=== PATIENT | female | born 1965 | race Caucasian/White ===

== ENCOUNTER 2019-03-01 10:17 | Inpatient (IN) ==
[2019-03-01 10:51] LABS: URINE SOURCE CLEAN CATCH
[2019-03-01 11:00] LABS: BILIRUBIN URINE NEGATIVE (NEGATIVE); BLOOD URINE NEGATIVE (NEGATIVE); COLOR YELLOW; GLUCOSE URINE NEGATIVE (NEGATIVE); KETONE URINE 10 mg/dL (NEGATIVE); LEUKOCYTES URINE MODERATE (NEGATIVE); NITRITE URINE NEGATIVE (NEGATIVE); PROTEIN URINE 30 mg/dL (NEGATIVE); SP GRAVITY URINE 1.028; TURBIDITY URINE HAZY (CLEAR); UROBILINOGEN URINE NORMAL (NORMAL)
[2019-03-01 11:17] LABS: UR EPITHELIAL CELLS >10 /HPF (<10); URINE BACTERIA NEGATIVE /HPF; URINE RBC <10 /HPF (<10)
[2019-03-01 11:17] LABS: BASO# 0.04 X1000 (0.0-0.2); BASO% 0.2 % (0.0-0.8); HEMATOCRIT 49.2 % (37.0-47.0); HEMOGLOBIN 16.8 g/dL (12.0-16.0); IMM GRAN# 0.03 X1000 (0.0-0.04); IMM GRAN% 0.2 % (0.0-0.5); LYMPH# 1.18 X1000 (1.2-3.4); LYMPH% 7.2 % (20.5-51.1); MCH 30.1 PG (27-31); MCHC 34.1 g/dL (33-37); MONO# 0.83 X1000 (0.11-0.59); MPV 10.6 FL (7.4-10.4); NEUT# 14.42 X1000 (1.4-6.5); NEUT% 87.4 % (42.2-75.2); PLT 366 X1000 (130-400); RBC 5.59 XMIL (4.2-5.4); RDW 12.3 % (11.5-14.5)
[2019-03-01 11:22] LABS: URINE CASTS NONE SEEN; URINE CRYSTALS NONE SEEN; URINE SMALL ROUND CELLS NONE SEEN; URINE YEAST NONE SEEN
[2019-03-01] MEDS ORDERED: NS 1,000 ML IV ONE (11:40)
[2019-03-01] MEDS ORDERED: ZOFRAN IV ONE (11:40)
[2019-03-01] MEDS ORDERED: PROTONIX IV ONE (11:40)
[2019-03-01] MEDS ORDERED: SODIUM CHLORIDE 0.9% INJ ONE (11:40)
[2019-03-01 11:42] LABS: AGAP 18; ALB/GLOB RATIO 1.5; ALBUMIN 4.6 g/dL (3.5-5.0); ALKALINE PHOSPHATASE 111 U/L (32-104); AMYLASE 67 U/L (20-200); BUN 12 mg/dL (8-22); CALCIUM 10.5 mg/dL (8.8-10.2); CHLORIDE 103 mmol/L (98-107); COSMO 284; CREATININE 0.9 mg/dL (0.5-0.9); ESTIMATED GFR > 60; GLUCOSE 184 mg/dL (70-104); GOT 27 U/L (10-30); GPT 34 U/L (10-36); LIPASE 18 U/L (13-60); POTASSIUM 4.7 mmol/L (3.5-5.1); SODIUM 140 mmol/L (136-145); TCO2 19 mmol/L (25-35); TOTAL BILIRUBIN 0.47 mg/dL (0.20-1.00); TOTAL PROTEIN 7.6 g/dL (6.3-8.3)
--- NOTE | 2019-03-01 12:42 | Diag Imaging Result Doc PS360 ---
EXAM: CT ABD/PELVIS W/IV CONT ONLY HISTORY: epigastric pain, leukocytosis TECHNIQUE: CT abdomen and pelvis with intravenous contrast, but without oral contrast. COMPARISON: 05/04/2018 FINDINGS: The gallbladder has been removed. Normal liver, spleen, pancreas, adrenal glands, and kidneys. No hydronephrosis. Normal aorta. Normal appendix. No abscess. No bowel obstruction. There appears to be mild thickening to the wall of the ascending colon. The uterus is small. Urinary bladder is moderately distended and normal. No pelvic mass. IMPRESSION: 1.Possible ascending colitis 2.Cholecystectomy This exam was performed using automated exposure control, adjustment of mA or kV according to patient size, and/or use of iterative reconstruction technique. Electronically signed by hCris Guzman 03/01/2019 12:40 PM
[2019-03-01] MEDS ORDERED: FLAGYL 500 MG/NS 500 MG/100 ML IVPB IV ONE (14:07)
[2019-03-01] MEDS ORDERED: ROCEPHIN 1 GM in NS 50 ML IV ONE (14:07)
[2019-03-01] MEDS ORDERED: ZOFRAN PO PRN (15:21)
[2019-03-01] MEDS: FLAGYL 500 MG/NS 500 MG/100 ML IVPB IV SCH ×2 (17:04→22:32)
[2019-03-01] MEDS ORDERED: NICODERM PATCH TD ONE (18:39)
[2019-03-01] MEDS ORDERED: TYLENOL PO PRN (18:41)
--- NOTE | 2019-03-01 20:49 | HISTORY AND PHYSICAL ---
CHIEF COMPLAINT: Abdominal pain. Ms Mobley 54-year-old white female patient complaining of pain in the epigastrium started last night. The pain was moderate in intensity. The patient also had nausea, vomiting feeling. Pain was moderate in intensity. The patient was in rehab at some hospital for her medication abuse behavior. The patient claimed she was at [facility], from there she drove to [facility] as her PMD Dr. Wade is here and railway shunter Dr. Garg is here. In the ER patient had CT scan of the abdomen and pelvis done, which revealed possible ascending colitis. CBC revealed leukocytosis and the patient was admitted for further care. Her oral intake was poor. The patient did have nausea. She was complaining of chills and feverish feeling. The patient claims she was restless due to her pain. Patient denied any dysuria or hematuria. Complaining of urinary frequency. The patient did have few loose bowel movements. She was not sure about blood or mucus in the stool. No abdominal distention. Complaining of mild cough with scanty sputum production. No typical chest pain. No major weight gain or weight loss. At times palpitation. Patient was nervous. No further history available at this time. ALLERGIES: Codeine. CURRENT MEDICATIONS: Include Prilosec. PAST MEDICAL HISTORY: Gastritis and reflux disease. Patient had a cholecystectomy many months ago. She had surgery on her left forearm. History suggestive of gastritis and reflux disease, chronic pain, history of pain medication abuse, she does have history suggestive of mucus in the stool, history of hepatitis C, colon polyp, sinus surgery and left wrist surgery. PERSONAL HISTORY: Patient lives with her spouse, does smoke, denied alcohol. Patient was taking pain medication for which she went for rehab. FAMILY HISTORY: Significant for hypertension and heart disease on her father's side. Mother is healthy. PHYSICAL EXAMINATION: GENERAL: Middle-aged white female patient in mild distress. VITAL SIGNS: On admission blood pressure 163/68, pulse 53, respiratory rate 16, temperature 98 degrees. SKIN: Normal turgor. No rash or petechiae. Head atraumatic, normocephalic. [place] conjunctivae. Anicteric sclerae. Extraocular muscle movement normal. Fundus cannot be penetrated. Good oral hygiene. No tonsillopharyngeal congestion or exudate. Ears and nose benign. NECK: Supple. No JVD, thyromegaly or lymphadenopathy. CHEST: Bilateral good air entry present. No rales or rhonchi. Occasional wheezing. CARDIOVASCULAR: S1 and S2 heard. No gallop or thrill. ABDOMEN: Soft. No distention. Bowel sounds present. Tenderness in the epigastrium, mild tenderness right upper quadrant. No guarding or rigidity. EXTREMITIES: No cyanosis, clubbing. No acute DVT. Peripheral pulsation intact. MECHANICAL OXIDIZER: Alert, awake, able to move all 4 limbs. LAB DATA: Revealed WBC count 16.5, hemoglobin 16.8, hematocrit 49.2, platelet count 366,000. Electrolytes fairly benign. Blood sugar 184. Urinalysis, patient does have moderate leukocyte, 10 to [address] scan of the abdomen and pelvis done which did reveal ascending colitis. CONSIDERATION: Patient admitted with abdominal pain. Consideration ascending colitis, gastritis. Urinalysis did reveal urinary tract infection. History of pain medication use, leukocytosis. PLAN: Admit patient. IV antibiotics. Close observation. IV Protonix. Patient does have history of hepatitis C. Overall plan discussed at length with the patient. Encouraged smoking cessation. cc: Lake Jimenez MD
[2019-03-01] MEDS: LEVAQUIN 500 MG/D5W 500 MG/100 ML IVPB IV SCH (22:31)
[2019-03-01] MEDS ORDERED: PROTONIX IV SCH (23:00)
[2019-03-02] MEDS: NS + KCL 20 MEQ 1,000 ML IV SCH ×2 (00:07→15:08)
[2019-03-02] MEDS ORDERED: ROCEPHIN 1 GM in NS 50 ML IV SCH (03:00)
[2019-03-02] MEDS: FLAGYL 500 MG/NS 500 MG/100 ML IVPB IV SCH ×4 (04:15→20:50)
[2019-03-02 06:24] LABS: BASO# 0.02 X1000 (0.0-0.2); BASO% 0.2 % (0.0-0.8); EOS# 0.03 X1000 (0.0-0.7); EOS% 0.2 % (0.0-10.0); HEMATOCRIT 42.4 % (37.0-47.0); HEMOGLOBIN 13.9 g/dL (12.0-16.0); IMM GRAN# 0.02 X1000 (0.0-0.04); IMM GRAN% 0.2 % (0.0-0.5); LYMPH# 3.24 X1000 (1.2-3.4); LYMPH% 25.7 % (20.5-51.1); MCHC 32.8 g/dL (33-37); MCV 91.4 FL (81-99); MONO# 0.96 X1000 (0.11-0.59); MONO% 7.6 % (1.7-9.3); MPV 10.5 FL (7.4-10.4); NEUT# 8.34 X1000 (1.4-6.5); NEUT% 66.1 % (42.2-75.2); PLT 261 X1000 (130-400); RBC 4.64 XMIL (4.2-5.4); RDW 12.4 % (11.5-14.5); WBC 12.61 X1000 (4.8-10.8)
[2019-03-02 07:07] LABS: AGAP 13; ALB/GLOB RATIO 1.5; ALBUMIN 3.4 g/dL (3.5-5.0); ALKALINE PHOSPHATASE 77 U/L (32-104); BUN 8 mg/dL (8-22); CALCIUM 8.6 mg/dL (8.8-10.2); CHLORIDE 107 mmol/L (98-107); COSMO 279; CREATININE 0.7 mg/dL (0.5-0.9); ESTIMATED GFR > 60; GLUCOSE 92 mg/dL (70-104); GOT 21 U/L (10-30); GPT 21 U/L (10-36); POTASSIUM 4.1 mmol/L (3.5-5.1); SODIUM 141 mmol/L (136-145); TCO2 21 mmol/L (25-35); TOTAL BILIRUBIN 0.45 mg/dL (0.20-1.00); TOTAL PROTEIN 5.7 g/dL (6.3-8.3)
[2019-03-02] MEDS: PROTONIX IV SCH (12:56)
[2019-03-02] MEDS: SODIUM CHLORIDE 0.9% INJ PRN (12:56)
[2019-03-02] MEDS ORDERED: NICODERM PATCH TD PRN (17:01)
--- NOTE | 2019-03-02 17:25 | PROGRESS NOTE ---
DATE: 03/02/2019 SUBJECTIVE: I am seeing Ms. Mobley in Dr. Wade' absence. The patient says she has had some epigastric pain that seems to be slightly improved today. Yesterday she had vomiting and diarrhea that have now resolved. She was in [facility], and she wants to have the old records summoned for her evaluation on that. She wants to see Dr. Garg, as he has followed her senior living for some off and on vomiting, diarrhea, and epigastric pain. She says she has had her gallbladder removed by Dr. Herrera back in September, and in August the patient had apparently had endoscopies, upper and lower, per Dr. Garg. She has continued to have off and on episodes of vomiting and diarrhea, and she wants improvement senior living from that. She has been found on a CT scan of the abdomen and pelvis to have some thickening of the wall of the ascending colon, otherwise negative. OBJECTIVE: Vital Signs: Afebrile, pulse 56, respirations 16, blood pressure 129/80, and O2 saturation on room air 98%. Cardiovascular: RRR. No murmur. Lungs: CTA. Abdomen: Soft. Mild epigastric tenderness. No mass or organomegaly. No rebound or guarding. Extremities: No calf tenderness, cords, or edema. Neurologic: Cranial nerves 2 through 12 are intact. No focal deficits. LABORATORY DATA: White count has diminished from 16.5 to 12.6, hemoglobin 13.9, platelets 261,000. CMP unremarkable. Amylase and lipase normal yesterday. Urinalysis showed moderate leukocytes, 10 to 20 WBCs per clean-catch specimen yesterday, but so far the urine culture is negative. ASSESSMENT: 1. Abdominal pain, recurrent, with possible ascending colitis. 2. Pyuria with negative urine culture so far. 3. Leukocytosis. 4. History of pain medication use. 5. Hepatitis C. 6. Remote history of intravenous drug abuse. 7. History of hypertension. 8. History of post traumatic stress disorder. PLAN: We will ask Dr. Garg to see the patient at her request. Continue IV antibiotics of Levaquin and Flagyl. Continue IV fluids. Continue IV Protonix. Zofran as needed for nausea or vomiting. Nicotine patch will be continued as needed. Repeat laboratories in the morning to include sedimentation rate, CBC, BMP. cc: MD Lake Madrigal MD
[2019-03-02] MEDS: LEVAQUIN 500 MG/D5W 500 MG/100 ML IVPB IV SCH (22:48)
[2019-03-03] MEDS: ZOFRAN IV PRN ×4 (03:56→18:08)
[2019-03-03] MEDS: FLAGYL 500 MG/NS 500 MG/100 ML IVPB IV SCH ×5 (03:56→20:58)
[2019-03-03] MEDS ORDERED: G.I. COCKTAIL PO ONE (04:34)
[2019-03-03 06:37] LABS: BASO# 0.05 X1000 (0.0-0.2); BASO% 0.4 % (0.0-0.8); EOS# 0.03 X1000 (0.0-0.7); EOS% 0.3 % (0.0-10.0); HEMATOCRIT 44.4 % (37.0-47.0); HEMOGLOBIN 15.1 g/dL (12.0-16.0); IMM GRAN# 0.03 X1000 (0.0-0.04); IMM GRAN% 0.3 % (0.0-0.5); LYMPH# 2.32 X1000 (1.2-3.4); LYMPH% 19.7 % (20.5-51.1); MCH 30.3 PG (27-31); MCV 89.2 FL (81-99); MONO# 0.95 X1000 (0.11-0.59); MONO% 8.1 % (1.7-9.3); MPV 10.9 FL (7.4-10.4); NEUT% 71.2 % (42.2-75.2); PLT 294 X1000 (130-400); RBC 4.98 XMIL (4.2-5.4); RDW 12.2 % (11.5-14.5); WBC 11.78 X1000 (4.8-10.8)
[2019-03-03 07:16] LABS: AGAP 14; BUN 6 mg/dL (8-22); CALCIUM 9.2 mg/dL (8.8-10.2); CHLORIDE 103 mmol/L (98-107); COSMO 270; CREATININE 0.7 mg/dL (0.5-0.9); ESTIMATED GFR > 60; GLUCOSE 143 mg/dL (70-104); POTASSIUM 3.8 mmol/L (3.5-5.1); SODIUM 135 mmol/L (136-145); TCO2 18 mmol/L (25-35)
[2019-03-03] MEDS: SODIUM CHLORIDE 0.9% INJ PRN (07:58)
[2019-03-03] MEDS: PROTONIX IV SCH ×2 (07:58→11:04)
[2019-03-03 08:05] LABS: SED RATE 1 mm/hr (0-20)
[2019-03-03] MEDS: CARAFATE LIQUID PO SCH ×3 (10:04→20:58)
[2019-03-03] MEDS: SUPREP BOWEL PREP KIT PO SCH ×2 (11:57→21:01)
[2019-03-03] MEDS ORDERED: REGLAN IV PRN (13:12)
[2019-03-03] MEDS ORDERED: ROBAXIN PO PRN (13:39)
[2019-03-03] MEDS: LIBRAX PO SCH ×2 (14:15→17:39)
[2019-03-03] MEDS: G.I. COCKTAIL PO SCH ×2 (14:32→17:39)
[2019-03-03] MEDS: CATAPRES PO PRN (17:39)
--- NOTE | 2019-03-03 17:44 | CONSULTATION ---
DATE OF CONSULTATION: 03/03/2019 HISTORY OF PRESENT ILLNESS: Ms. Serene Mobley is a 54-year-old white female who has a history of substance abuse and was recently hospitalized at [facility]. On the day she was to be discharged she went down to their ER and then came to ours with abdominal pain, nausea, and vomiting. Evidently, she has these episodes fairly frequently. She has been evaluated in the past by Dr. Garg and in September 2018 underwent a laparoscopic cholecystectomy per Dr. Herrera. She continues to have these symptoms intermittently. We were asked to evaluate her to rule out surgical abdomen. PAST MEDICAL HISTORY: She has a history of gastritis and reflux disease, status post laparoscopic cholecystectomy. Evidently she has had some trauma in the past requiring surgery on her left forearm. She has a history of chronic pain, on pain medicines. History of hepatitis C. MEDICATIONS: Prilosec. ALLERGIES: Codeine. SOCIAL HISTORY: She is . She is a smoker. She has a history of substance abuse. FAMILY HISTORY: Hypertension, heart disease. REVIEW OF SYSTEMS: Fourteen point review of systems was performed and it is complicated but is essentially negative except for the history of present illness. PHYSICAL EXAMINATION: General: Ms. Mobley is a middle-aged white female. Vital signs: Her heart rate is 52, blood pressure 171/56, O2 saturation 99%. She is afebrile. Her weight is 148 pounds. She is 5 feet 7 inches. Skin: She has no evidence of jaundice. HEENT: No oral lesions. Lymphatic: No cervical or supraclavicular lymphadenopathy. Heart: Regular rate. Lungs: Clear. She had no work of breathing. Abdomen: Soft. There is no evidence of hernia. She has well-healed trocar scars. No other scars on her abdomen. There was no palpable mass. I did not feel that she had an acute abdomen or peritonitis. Rectal and vaginal: Exams were not performed. Extremities: She does have palpable peripheral pulses. No peripheral edema. Neurologic: She is alert and oriented x3. She is very anxious and difficult to have her relax and carry on a conversation. DIAGNOSTIC STUDIES: I reviewed her CT scan done [address] Maldonado, our Radiologist. There is a question of whether she even has ascending colitis. There is nothing intra-abdominally to suggest a surgical abdomen, such as free air or infection. There was no evidence of bowel obstruction by CT scan. Her white blood cell count has been elevated. It was 16.5 on the day of admission 03/01/2019. It has decreased to 11.8. She is on IV antibiotics for possible urinary tract infection. Her electrolytes show a BUN of 6, creatinine of 0.7. Glucose is satisfactory. Her amylase and lipase are normal. Liver function tests are normal. PLAN: Her abdomen is soft and did not appear to have peritonitis. A CT scan shows no intra- abdominal pathology. She is not tachycardic or have fever. She did have a white count that is improving on IV antibiotics. She states she continues to have nausea and she has been n.p.o. except medications. GI has been consulted. Will await further recommendations from them. cc: MD Lake Morgan MD
--- NOTE | 2019-03-03 18:21 | PROGRESS NOTE ---
DATE: 03/03/2019 SUBJECTIVE: I am seeing Ms. Mobley in Dr. Wade' absence. The patient had become more agitated and began vomiting around 3 a.m. this morning. Did get copies of her medical record from [facility] in [place], [place] where she had undergone inpatient treatment briefly, as she was seen on 02/24/2019 and placed in the hospital for withdrawal trying to get off of heroin and benzodiazepines. Apparently the patient ultimately checked out against medical advice after she required morphine administration, per hospitalist, and did receive some Ativan while she was there. May have also taken some additional medications to include Robaxin, clonidine, Vistaril, and ibuprofen. I spoke with Dr. Garg in detail about her case today as well, as he was in the room when I was. OBJECTIVE: Vital Signs: Afebrile. Pulse 52, respirations 20, blood pressure 171/56, O2 saturation on room air 99% Cardiovascular: Regular rate and rhythm. Lungs: Clear to auscultation. Abdomen: Tender in the epigastrium. No mass or organomegaly. No rebound or guarding. Extremities: No calf tenderness, cords or edema. Neurologic: She moves all extremities well. No focal deficits. Cranial nerves intact. LAB DATA: Today shows white count down to 11.7, hemoglobin 15.1, platelets 294,000. Sodium 135, potassium 3.8, chloride 103, CO2 18, BUN 6, creatinine 0.7, glucose 143, calcium 9.2. Urine culture from admission is no growth. ASSESSMENT: 1. Abdominal pain with possible ascending colitis. 2. Withdrawal with patient testing positive in the hospital at [facility] for opiates, buprenorphine, and benzodiazepines. 3. Pyuria with negative urine culture. 4. Leukocytosis, improving. 5. Chronic hepatitis C. 6. Hypertension. 7. History of post traumatic stress disorder. PLAN: I spoke with Dr. Garg and we agree that we should avoid narcotic medications and to try to help the patient through withdrawal. She remains on Levaquin and Flagyl and Dr. Garg has placed her on Carafate and she is on PPI intravenously. He also has added Librax. We will add p.r.n. clonidine. We will give her a scheduled dose of Robaxin. She has a nicotine patch ordered. We will give her hydroxyzine. Place her on seizure precautions and support the patient during this difficult withdrawal. cc: MD Lake Madrigal MD
--- NOTE | 2019-03-03 20:36 | GASTROENTEROLOGY CONSULTATION ---
DATE: 03/03/2019 REASON FOR CONSULTATION: Abdominal pain. HISTORY OF PRESENT ILLNESS: This is a 54-year-old female who [facility]. Apparently the patient left against medical advice over the weekend and came straight to the emergency room because of severe abdominal pain. Patient wanted to come back in to [place] because she sees Dr. Wade and Dr. Garg. We had last seen the patient for endoscopies in May 2018. She had EGD and colonoscopy at that time on 05/23/2018. Findings showed esophagitis, gastric erosions, a large ascending colon polyp and a polyp in the rectosigmoid colon. Her pathology showed tubular adenoma polyp and serrated adenoma polyp, and she was recommended to have a followup colonoscopy in 1 year due to the large size polyp. That colonoscopy would be due in May of this year. The patient had reported onset of symptoms as noted while she was at [facility]. At the time of my evaluation, patient is very uncomfortable and she is complaining of pain described as a burning pain. She cannot sit still. I can barely interview the patient or do her physical exam because patient is constantly moving around in the bed. She has reported nausea and vomiting. She states she has not had a bowel movement in almost 6 days. She states her last heroin drug use was about 9 to 10 days ago. She is complaining of nausea, vomiting, and abdominal pain. She did report some episodes of fever and chills. On admission, she was noted to have leukocytosis. She has been started on antibiotics. She had a CT scan of the abdomen and pelvis with findings of possible ascending colitis and history of cholecystectomy. PAST MEDICAL HISTORY: 1. Gastroesophageal reflux disease. 2. History of cholecystectomy. 3. History of drug use. 4. History of recent drug rehab/detox at [facility]. 5. A reported history of hepatitis C. I do not know the full details. Patient states the last time she was checked, she was in remission. PAST SURGICAL HISTORY: 1. Cholecystectomy. 2. Surgery on left arm. 3. EGD and colonoscopy in May [address] Garg, that showed esophagitis, gastric erosions, large ascending colon polyp, and polyp in the rectosigmoid colon, with recommendation to have a repeat colonoscopy in 1 year which will be due May 2019. ALLERGIES: Codeine, causing itching. HOME MEDICATIONS: Prilosec 20 mg daily. SOCIAL HISTORY: Positive for drug use. Patient reports her last heroin use was approximately 9 to 10 days ago prior to her rehab detox admission. She is . Positive tobacco use. OBJECTIVE: Vital signs: Temperature 98.4 degrees, pulse 55, respirations 20, blood pressure 180/71. General: The patient was awake and alert. She is reporting severe abdominal pain. She can not sit still. She has had episodes of nausea and vomiting. HEENT: Normocephalic, atraumatic. Pupils equal, round, reactive to light. Sclerae nonicteric. Respiratory: Lung sounds essentially clear. Cardiovascular: Regular rate and rhythm. Abdomen: Soft. The patient will not be still long enough for me to do a full abdominal exam. She does complain of tenderness with palpation over entire abdomen. Extremities: No lower extremity edema noted. DIAGNOSTIC RESULTS/LABORATORY: Hematology: WBC 11.78. On admission, it was 16.50. Hemoglobin 15.1, hematocrit 44.4, MCV 89.2, platelets 294,000. Chemistry: Sodium 135, potassium 3.8, chloride 103, CO2 18, BUN 6, creatinine 0.7, glucose 143, calcium 9.2, magnesium 2.0, total bilirubin 0.45, AST 21, ALT 21, alkaline phosphatase 77, amylase 67, lipase 18. IMAGING STUDIES: Abdominal CT scan showed possible ascending colitis and cholecystectomy. ASSESSMENT AND PLAN: 1. Abdominal pain. 2. Nausea and vomiting. 3. Leukocytosis. 4. Ascending colitis. Continue antibiotics. 5. History of heroin abuse with recent rehabilitation detoxification. 6. Reported history of hepatitis C. I do not have those details on whether she was treated. 7. Continue antibiotics. Continue symptomatic treatment and supportive care. 8. I have discussed this case with Dr. Garg. He recommends surgical consult to rule out acute abdomen. In the meantime, we will add Carafate and GI cocktail, add Librax for abdominal pain. Further plans will be made as needed. Patient was also seen by Dr. Garg. Thank you for this consultation. Dictated by ZENON Ballard for Siva Garg MD cc: ZENON Flanagan MD Bharat K. Vakharia, MD
[2019-03-03] MEDS: ATARAX PO SCH (20:58)
[2019-03-03] MEDS: ROBAXIN PO SCH (20:58)
[2019-03-03] MEDS: LEVAQUIN 500 MG/D5W 500 MG/100 ML IVPB IV SCH (22:05)
[2019-03-04] MEDS: ZOFRAN IV PRN ×5 (01:34→20:52)
[2019-03-04] MEDS: ROBAXIN PO SCH ×4 (01:34→20:52)
[2019-03-04] MEDS: CARAFATE LIQUID PO SCH ×4 (01:35→20:52)
[2019-03-04] MEDS: FLAGYL 500 MG/NS 500 MG/100 ML IVPB IV SCH ×5 (02:26→20:52)
[2019-03-04] MEDS: ATARAX PO SCH ×3 (07:53→20:52)
[2019-03-04] MEDS: G.I. COCKTAIL PO SCH ×4 (07:53→20:55)
[2019-03-04] MEDS: LIBRAX PO SCH ×4 (07:53→20:55)
[2019-03-04] MEDS: PROTONIX IV SCH ×2 (07:58→11:55)
[2019-03-04] MEDS: SODIUM CHLORIDE 0.9% INJ PRN (07:58)
[2019-03-04] MEDS: CATAPRES PO PRN (08:28)
--- NOTE | 2019-03-04 20:22 | GASTROENTEROLOGY PROGRESS NOTE ---
DATE: 03/04/2019 SUBJECTIVE: At the time of my rounds, the patient was asleep. She aroused easily. She states her abdominal pain has greatly improved. She does not complain of pain at the present time. She has tolerated sips of water and ice chips. OBJECTIVE: Vital Signs: Temperature 98.9 degrees, pulse 70, respirations 18, blood pressure 118/91. General: The patient was resting with eyes closed. Aroused easily. Was in no acute distress today. Abdomen: Soft, only mild tenderness with palpation. Positive bowel sounds. LABORATORY: Hematology: WBC 11.78, hemoglobin 15.1, hematocrit 44.4, MCV 89.2, platelets 294,000. Chemistry: Sodium 135, potassium 3.8, chloride 103, CO2 is 18, BUN 6, creatinine 0.7, glucose 143, calcium 9.2. Liver function tests are normal. Amylase and lipase were normal. ASSESSMENT AND PLAN: 1. Abdominal pain has greatly improved. Patient reporting only mild tenderness in the abdomen now. No reported nausea or vomiting today. 2. Leukocytosis. Continue antibiotics. 3. CT scan showing ascending colitis. Continue antibiotics and symptomatic treatment. 4. History of heroin abuse with recent rehab detoxification at [facility]. 5. Reported history of hepatitis C. Would recommend she follow up with us as an outpatient for further evaluation of that. We may order labs while she is here in the hospital. Her symptoms have improved. Continue current symptomatic treatment. We will try a clear liquid diet today, but recommend avoiding carbonated drinks, acidic juices or Gatorade for now. Further plans to be made according to her progress. I have discussed this case with Dr. Garg. Dictated by ZENON Ballard for Siva Garg MD cc: ZENON Flanagan MD Bharat K. Vakharia, MD MTDD
--- NOTE | 2019-03-04 21:07 | PROGRESS NOTE ---
DATE: 03/04/2019 SUBJECTIVE: Ms. Cast is doing better today. The patient claims her nausea is less. Abdominal pain is improving. The patient still has some agitation, at times, dull headache. No typical chest pain or palpitations. Denied any fever or chills. Blood pressure is doing better. Her behavior seems to be improving. The patient was admitted with abdominal pain, nausea and vomiting. Her progress reviewed. GI recommendation noted. OBJECTIVE: Vital Signs: Blood pressure 118/91, pulse 70, respirations 18, temperature 98.9. Neck: Supple. No JVD. Lungs Bilateral good air entry present. Cardiovascular: S1 and S2 heard. Abdomen: Soft. No distention. Mild epigastric tenderness. No guarding or rigidity. Extremities: No cyanosis, clubbing. No acute DVT. Central nervous system: Alert, awake, able to move all 4 limbs. LABORATORY DATA: Done yesterday noted. ASSESSMENT AND PLAN: Patient's problems include: 1. Ascending colitis. We will continue Flagyl and Levaquin. 2. Pyuria with negative urine culture. 3. Leukocytosis, improving. Hepatitis C. 4. History of posttraumatic stress disorder. 5. History of pain medication abuse. Overall plan discussed with the patient. I am going to check appropriate labs tomorrow. If clinical condition permits, we will advance her diet. cc: Lake Jimenez MD
[2019-03-04] MEDS: LEVAQUIN 500 MG/D5W 500 MG/100 ML IVPB IV SCH (23:11)
[2019-03-05] MEDS: FLAGYL 500 MG/NS 500 MG/100 ML IVPB IV SCH ×3 (02:44→15:40)
[2019-03-05] MEDS: ROBAXIN PO SCH ×3 (02:44→15:40)
[2019-03-05] MEDS: CARAFATE LIQUID PO SCH ×3 (02:44→15:40)
[2019-03-05] MEDS: ZOFRAN IV PRN ×3 (02:44→15:40)
[2019-03-05 07:27] LABS: BASO# 0.04 X1000 (0.0-0.2); BASO% 0.5 % (0.0-0.8); EOS# 0.02 X1000 (0.0-0.7); EOS% 0.2 % (0.0-10.0); HEMATOCRIT 47.4 % (37.0-47.0); HEMOGLOBIN 16.3 g/dL (12.0-16.0); LYMPH% 37.2 % (20.5-51.1); MCH 30.2 PG (27-31); MCHC 34.4 g/dL (33-37); MCV 87.8 FL (81-99); MONO# 0.89 X1000 (0.11-0.59); MPV 10.8 FL (7.4-10.4); NEUT# 4.11 X1000 (1.4-6.5); NEUT% 51.1 % (42.2-75.2); PLT 290 X1000 (130-400); WBC 8.06 X1000 (4.8-10.8)
--- NOTE | 2019-03-05 07:52 | Diag Imaging Result Doc PS360 ---
ABDOMEN FLAT/UPRIGHT - 03/05/2019 INDICATION: sbo COMPARISON: 08/28/2017 FINDINGS: There is a nonobstructive bowel gas pattern. No free air or abdominal calcifications. There are cholecystectomy clips. IMPRESSION: No acute disease. Electronically signed by Kishore Null 03/05/2019 7:50 AM
[2019-03-05 08:01] LABS: AGAP 13; ALB/GLOB RATIO 1.5; ALKALINE PHOSPHATASE 85 U/L (32-104); BUN 13 mg/dL (8-22); CALCIUM 8.9 mg/dL (8.8-10.2); CHLORIDE 95 mmol/L (98-107); COSMO 271; CREATININE 0.9 mg/dL (0.5-0.9); ESTIMATED GFR > 60; GLUCOSE 107 mg/dL (70-104); GOT 40 U/L (10-30); GPT 34 U/L (10-36); POTASSIUM 3.4 mmol/L (3.5-5.1); SODIUM 135 mmol/L (136-145); TCO2 27 mmol/L (25-35); TOTAL BILIRUBIN 0.92 mg/dL (0.20-1.00); TOTAL PROTEIN 6.6 g/dL (6.3-8.3)
--- NOTE | 2019-03-05 08:51 | PROGRESS NOTE ---
DATE: 03/05/2019 SUBJECTIVE: Ms. Mobley is doing better. The patient is feeling hungry. No fever or chills. Denied any nausea or vomiting. No typical chest pain. OBJECTIVE: Her vital signs noted. Neck is supple. No JVD. Lungs: Bilateral good air entry present. CVS: S1 and S2 heard. Abdomen: Soft. No distention. Bowel sounds present. RULING MACHINE OPERATOR: Alert, awake. Able to move all 4 limbs. Clinically, the patient is doing better. The patient is feeling hungry. I am going to put her on a GI soft diet. Patient admitted with ascending colitis, leukocytosis improving, pyuria but urine culture negative, history of hepatitis C. I am going to advance her diet. Check today's labs. If clinical condition permits, we will plan discharging patient home soon. cc: Lake Jimenez MD
[2019-03-05] MEDS: LIBRAX PO SCH ×2 (09:12→15:40)
[2019-03-05] MEDS: ATARAX PO SCH (09:12)
[2019-03-05] MEDS: G.I. COCKTAIL PO SCH ×2 (09:12→15:40)
[2019-03-05] MEDS: PROTONIX IV SCH ×2 (09:22→11:12)
[2019-03-05] MEDS: SODIUM CHLORIDE 0.9% INJ PRN (09:22)
[2019-03-05] MEDS ORDERED: KLOR-CON PO ONE (14:11)
[2019-03-05 15:17] VITALS: BP 120/68
--- NOTE | 2019-03-05 19:59 | GASTROENTEROLOGY PROGRESS NOTE ---
DATE: 03/05/2019 SUBJECTIVE: Patient is all dressed, sitting up in the bed. She has tolerated her diet well. No new complaints. She reports no abdominal pain or heartburn. She has not had any nausea or vomiting. She apparently is scheduled to be discharged either later today or tomorrow, depending how she tolerates her diet. OBJECTIVE: vital signs: Temperature 98 degrees Fahrenheit, pulse 87, breathing 16, blood pressure 118/86. abdomen: Full, soft, nontender. Bowel sounds audible. No pedal edema noted. LABORATORIES: Reviewed on the computer, IMPRESSION/PLAN: 1. Atypical chest pain and gastroesophageal reflux disease better. She is on PPI. She has not had gastrointestinal symptoms anymore. 2. Colitis involving the right colon. Most likely infectious. She is currently on antibiotic. I would continue it for another couple days. She was advised to follow up with me after discharge. She may need endoscopic evaluation to further study the right colon. 3. Chronic hepatitis C. That needs to be evaluated further and she may need treatment. Her slightly elevated AST could be related to her chronic hepatitis C. I have explained the findings and plan to the patient and her family members who were present at the bedside, and encouraged her to follow up with us at the office after discharge. cc: MD Lake Mustafa MD
--- NOTE | 2019-03-06 17:24 | DISCHARGE SUMMARY ---
ADMISSION DATE: 03/01/2019 DISCHARGE DATE: 03/05/2019 FINAL DISCHARGE DIAGNOSES: 1. Ascending colitis. 2. Pyuria without with negative urine culture. 3. History of opioid abuse. 4. Gastritis. 5. Hypokalemia. 6. Leukocytosis. 7. Hepatitis C. 8. Hypertension. 9. History of posttraumatic stress disorder. HISTORY AND HOSPITAL COURSE: Ms. Serene Mobley is a 54-year-old, white female patient. The patient was getting rehab at [facility] where the patient started having pain in the right upper quadrant. The pain was moderate in intensity. The patient was instructed to send out against medical advice and go to ER. The patient came to [facility] where his PMD was. Patient evaluated. CT scan of the abdomen and pelvis did reveal ascending colitis. The patient was admitted, started on IV fluids, IV antibiotics. GI consult obtained with Dr. Garg who is her primary assembler truck trailer. The patient was treated with clonidine on p.r.n. basis. Symptomatic treatment for opiate withdrawal. Patient is doing much better. The patient is very eager to go home. The patient claims she does have very good social support, and she is not planning to start her opiate back again. Clinically patient is doing better. She tolerated breakfast and lunch well. Abdominal pain, nausea and vomiting improving. PHYSICAL EXAMINATION ON DISCHARGE: Vital signs: Noted. Neck: Supple. No JVD. Lungs: Bilateral good air entry present. Cardiovascular: S1 and S2 heard. Abdomen: Soft, globular. Abdominal tenderness much improved. Central nervous system: Alert, awake, oriented x3. No focalities. LABORATORY DATA: Done today did reveal a significant improvement in her leukocytosis. Potassium was 3.4. I supplemented potassium. The patient was seen by assembler truck trailer who OK'd her discharge too. Medically patient is doing better. Her withdrawal is improving. I am going to discharge her home on Levaquin and Flagyl. I gave her a few Librax for abdominal pain. Continue her Prilosec. Patient lives very close to the hospital. If she has more problems patient claims she can come back, advised her to have follow up with Dr. Wade next week. Smoking cessation. Continue rest of the treatment. Plenty of liquids orally. Advised her to avoid heavy meal. In case of more distress, call us back or go to the emergency room. DISCHARGE CONDITION: Satisfactory. Lab data done today: Potassium 3.4, AST was 40. The patient does have hepatitis C. Initial leukocyte count was 16.5. Her abdominal x-ray done today showed no acute disease. There are cholecystectomy clips. CT scan of the abdomen and pelvis, possible ascending colitis, evidence of cholecystectomy. Overall discharge plan discussed at length by the patient, and she is in agreement. cc: Lake Jimenez MD
== END 2019-03-05 18:16 | disposition home or self-care (01) | DRG 392 ==
LOC: ED 10:17 → 4N 15:01
PROVIDERS: ADMIT Internal Medicine; ATTEND Emergency Medicine

== ENCOUNTER 2019-03-20 02:29 | Inpatient (IN) ==
[2019-03-20] MEDS ORDERED: ZOFRAN IV ONE (02:34)
[2019-03-20] MEDS ORDERED: NS 1,000 ML IV ONE (02:34)
--- NOTE | 2019-03-20 02:35 | PROVIDER DOCUMENTATION ---
HPI-Abdominal Pain/GI Problem - General Chief Complaint: Abdominal Pain Stated Complaint: N/V Time Seen by Provider: 03/20/19 02:29 Source: patient Allergies/Adverse Reactions: Patient Allergies Allergy/AdvReac Type Severity Reaction Status Date / Time codeine Allergy Intermediate ITCHING Verified 03/20/19 03:40 Home Medications: Home Medication List Medication Instructions Recorded Confirmed Last Taken Type Omeprazole [Prilosec] 40 mg PO DAILY #30 03/05/19 03/20/19 Unknown Rx Docusate Sodium 100 mg PO QPM 03/20/19 03/20/19 Unknown History Hydroxyzine HCl 25 mg PO DAILY 03/20/19 03/20/19 Unknown History Sucralfate 1 gm PO BID 03/20/19 03/20/19 Unknown History - History of Present Illness-ABD Nature of Presenting Problems: Patient is a 54 year old white female with history of substance abuse, recurrent colitis, abdominal pain, nausea, and vomiting for many years who presents with worsening nausea, vomiting, upper abdomen pain, and black stools for past several days. Followed by GI doctor, Dr. Smalls. Just had CT of abdomen & pelvis about 2 weeks ago. Abdominal Pain Onset Location: reports: epigastric Quality of Pain: reports: aching Onset/Duration: reports: gradual Timing: reports: still present Activities at Onset: reports: none Review of Systems - Adult - REVIEW OF SYSTEMS - ADULT Constitutional: reports: see HPI. denies: chills, fever Eyes: reports: no symptoms reported Ears, Nose, Mouth & Throat: reports: no symptoms reported Cardiovascular: denies: chest pain Respiratory: denies: shortness of breath Gastrointestinal: reports: abdominal pain, nausea, vomiting, other (dark stools) Genitourinary: reports: no symptoms reported Musculoskeletal: reports: no symptoms reported Integumentary: reports: no symptoms reported Neurological: reports: no symptoms reported Psychiatric: reports: no symptoms reported Past History - Adult - PAST MEDICAL HISTORY-ADULT Review of Records: reports: Old Records Reviewed, Nursing Assessment Review, Me dications Reviewed, Social history reviewed & non-contributory. Major Childhood Illnesses: reports: denies history Cardiovascular: reports: HTN, hyperlipidemia Respiratory: reports: denies history Gastrointestinal: reports: GERD, hepatitis, ulcer Obstetrical/Gynecological: reports: denies history Genitourinary: reports: denies history Musculoskeletal: reports: chronic pain Neurological: reports: Seizures/Epilepsy Psychiatric: reports: anxiety, depression Endocrine/Immune: reports: other (Hep C) Other Conditions: reports: denies history - PRIOR SURGERIES/PROCEDURES Surgical/Procedure History: reports: hysterectomy - IMMUNIZATION STATUS Childhood Immunizations: See Nurse Assessment Flu Vaccine: See Nurse Assessment - FAMILY HISTORY Family History: reviewed, not pertinent Physical Exam-General - PHYSICAL EXAM-ADULT Initial Vital Signs Reviewed: Yes - CONSTITUTIONAL General Appearance: alert, anxious, other (dry mucous membranes) - EYES Eyes: other (clear) - HEAD, EARS, NOSE, MOUTH & THROAT HENMT: normocephalic/atraumatic - NECK Neck: supple - RESPIRATORY Respiratory: lungs clear - CARDIOVASCULAR Cardiovascular: tachycardia - GASTROINTESTINAL (ABDOMEN) Abdominal Exam: soft, hernia (diffuse). negative: guarding, rigid, rebound - LYMPHATIC Lymphatic: no adenopathy - MUSCULOSKELETAL Back Exam: normal inspection Extremity: normal range of motion, non-tender - SKIN Integumentary: tenderness, other (decreased turgor) - NEUROLOGIC Neurologic: grossly normal - PSYCHIATRIC Psych/Mental Status: oriented x 3, anxious Progress - PLAN OF CARE/RESULTS Progress/Plan/Lab Results: Orders Category Date Time Status Saline Loc DIRECTED Care 03/20/19 02:34 Ordered NPO Diet 03/20/19 02:34 Ordered CBC WITH ELECTRONIC DIFF [HEME] Stat Lab 03/20/19 02:34 Uncollected COMPREHENSIVE METABOLIC PANEL [CHEM] Stat Lab 03/20/19 02:34 Uncollected LIPASE [CHEM] Stat Lab 03/20/19 02:34 Uncollected Ns 1000 ml IV Bolus X1 Med 03/20/19 02:34 Ordered 0.9% Sodium Chloride Inj [Ns] 1,000 ml IV 999 mls/hr Ondansetron [Zofran] Med 03/20/19 02:34 Once 4 mg IV NOW ONE Result Diagrams: 03/20/19 03:35 03/20/19 03:35 - REASSESSMENT Reassessment #1 Time Reassessed: 06:00 Status: unchanged Reassessment Comment: continues to have nausea, epigastric pain despite IV fluids and Zofran - XRAY 1 XRAY Study: Abdomen XRAY Interpretation: nonspecific bowel gas pattern, no free air - CONSULTS/PCP/HOSPITALIST Notification #1 *Consult/PCP/Hospitalist*: Dr. Jackson, hospitalist Time Discussed: 05:55 Consult Disposition: Admit Departure - Departure Date of Disposition Decision: 03/20/19 Time of Disposition Decision: 02:37 DIAGNOSIS: Intractable nausea and vomiting Abdominal pain Qualifiers: Abdominal location: epigastric Qualified Code(s): R10.13 - Epigastric pain Disposition: ADMITTED INPATIENT 09 Certified Medical Emergency: Emergent Condition: Stable Referrals and Follow-Ups: Chava Wade Jr, MD [Primary Care Provider] - - Critical Care Note This patient required my direct & personal management of CC.: No Attestation - Physician/ LARA Attestation Patient care was provided by Advanced Practice Provider:: No The physician spent face to face time with patient:: Yes Advanced Practice Provider documentation review:: Supervising physician onsite and consulted in the evaluation and care of this patient. The physician did have a face to face encounter with the patient.
[2019-03-20 03:52] LABS: BASO# 0.02 X1000 (0.0-0.2); BASO% 0.2 % (0.0-0.8); HEMATOCRIT 46.5 % (37.0-47.0); HEMOGLOBIN 15.9 g/dL (12.0-16.0); IMM GRAN# 0.02 X1000 (0.0-0.04); IMM GRAN% 0.2 % (0.0-0.5); LYMPH% 10.9 % (20.5-51.1); MCH 30.3 PG (27-31); MCHC 34.2 g/dL (33-37); MCV 88.6 FL (81-99); MONO# 0.32 X1000 (0.11-0.59); MONO% 2.5 % (1.7-9.3); MPV 10.2 FL (7.4-10.4); NEUT% 86.2 % (42.2-75.2); PLT 297 X1000 (130-400); RBC 5.25 XMIL (4.2-5.4); RDW 12.6 % (11.5-14.5); WBC 12.86 X1000 (4.8-10.8)
[2019-03-20 04:14] LABS: AGAP 15; ALB/GLOB RATIO 1.5; ALBUMIN 4.4 g/dL (3.5-5.0); ALKALINE PHOSPHATASE 85 U/L (32-104); BUN 9 mg/dL (8-22); CALCIUM 9.6 mg/dL (8.8-10.2); CHLORIDE 100 mmol/L (98-107); COSMO 276; CREATININE 0.6 mg/dL (0.5-0.9); ESTIMATED GFR > 60; GLUCOSE 154 mg/dL (70-104); GOT 27 U/L (10-30); GPT 42 U/L (10-36); LIPASE 49 U/L (13-60); POTASSIUM 3.9 mmol/L (3.5-5.1); SODIUM 137 mmol/L (136-145); TCO2 22 mmol/L (25-35); TOTAL BILIRUBIN 0.62 mg/dL (0.20-1.00); TOTAL PROTEIN 7.3 g/dL (6.3-8.3)
--- NOTE | 2019-03-20 05:22 | Diag Imaging Result Doc PS360 ---
EXAM: ABDOMEN FLAT/UPRIGHT HISTORY: nausea and vomiting TECHNIQUE: Two views COMPARISON: 03/05/2019 FINDINGS: No free air beneath the diaphragm. No organomegaly. The gallbladder has been removed. No bowel obstruction. No abnormal abdominal calcifications. Mild scoliosis. IMPRESSION: No acute abnormality Electronically signed by Chris Guzman 03/20/2019 5:20 AM
[2019-03-20] MEDS ORDERED: PROTONIX IV ONE (05:55)
[2019-03-20] MEDS ORDERED: G.I. COCKTAIL PO ONE (05:55)
[2019-03-20] MEDS ORDERED: SODIUM CHLORIDE 0.9% INJ ONE (05:55)
[2019-03-20] MEDS ORDERED: ZOFRAN IV PRN (08:06)
[2019-03-20] MEDS ORDERED: SODIUM CHLORIDE 0.9% INJ SCH (08:15)
[2019-03-20] MEDS ORDERED: NS 1,000 ML IV SCH (08:15)
[2019-03-20] MEDS ORDERED: LEVAQUIN 500 MG/D5W 500 MG/100 ML IVPB IV SCH (08:15)
[2019-03-20] MEDS ORDERED: FLAGYL 500 MG/NS 500 MG/100 ML IVPB IV SCH (08:15)
[2019-03-20] MEDS ORDERED: CARAFATE PO SCH (09:00)
[2019-03-20] MEDS ORDERED: ATARAX PO SCH (09:00)
--- NOTE | 2019-03-20 10:16 | HISTORY AND PHYSICAL ---
CHIEF COMPLAINT: Abdominal pain, nausea, and melena. PRESENT ILLNESS: The patient is a 54-year-old, white female who was just in the hospital a couple weeks ago with gastritis and ascending colitis. She was in my office just three days ago and was not having problems but apparently within the last 24 hours started having some melanotic stools and throwing up where she could not control it. She had been on her omeprazole and her Carafate. She has had these symptoms off and on for many years. When she was in the hospital apparently, she did not get endoscopy and that may be what she needs now. She has also complained of chest pain, headaches and almost everything hurts. Her abdominal pain she initially pointed to her epigastric region but also says now says she hurts almost everywhere. PAST HISTORY: Past history patient has had a fractured left wrist, had surgery on that. She has had her gallbladder removed. She has had a total hysterectomy. FAMILY HISTORY: She has two boys and one girl. SOCIAL HISTORY: She has had drug dependency and alcohol dependency was in a treatment unit for detoxification when she had to come in the hospital a few weeks ago. She says she stayed off of all of this now. REVIEW OF SYSTEMS: Neurological, complains of headache all over. She is very emotional. Denies visual problems hearing problems. Says that she has had a seizure disorder but is no longer on seizure medication. Respiratory: Denies cough, wheezing, or dyspnea. Cardiovascular: Has chest pain that runs up the sides of her neck but that was not her initial complaint with all this nausea and it may just be referred pain but we will get an EKG. Denies PND or orthopnea. GI: Has had nausea and vomiting with melanotic stool. Tried doing a rectal exam, could not find any stool to check Hemoccult on. Endocrine: No diabetes or pituitary problems. Is going through menopause. She is having hot flashes. : Denies any difficulty with urination. Musculoskeletal: Denies any pains in her joints or her muscles at this time. Integument has had no new rashes. Psychiatric has felt stressed. PHYSICAL EXAMINATION: VITAL SIGNS: Blood pressure was 161/89, respirations 20, pulse 106, temp 97.9 degrees Fahrenheit. HEENT: She is normocephalic. EOMS intact. PERRLA. Throat clear. LUNGS: Clear to auscultation and percussion without rhonchi, rales, or wheezes. HEART: Regular rate and rhythm without murmurs, gallops, friction rubs. ABDOMEN: Soft. Active bowel sounds but says that it hurts in the epigastric area and the right lower quadrant which would go along with gastritis an ascending colitis that she has had previously. BREAST: Exam deferred. RECTAL EXAM: I actually had a nurse do this for me as I could not do it with my right hand. She could not feel anything there could not get any stool. PELVIC EXAM: Deferred. INTEGUMENT: Shows no lesions consistent with melanoma or skin cancers. Lymph nodes are nonpalpable in the cervical or supraclavicular areas. LABORATORY: Shows white count 12,860 hemoglobin 15.9, hematocrit 46.5. Electrolytes essentially normal. Blood sugar was up a little bit at 154. ALT or liver enzyme was up a little bit at 42. Rest of the liver enzymes were normal. Serum lipase was normal. ASSESSMENT: 1. Abdominal pain. 2. Melena. 3. Intractable nausea. 4. History of ascending colitis. 5. History of gastritis. 6. History of illicit drug abuse and alcoholism. 7. Chest pain. I am not sure whether this could be just from throwing up. PLAN: We will admit and consult GI. We will get an EKG. She should probably be back on antibiotics. Consider CT scan of the abdomen. cc: Chava Wade Jr, MD
[2019-03-20] MEDS ORDERED: ZOFRAN ODT PO ONE (10:27)
--- NOTE | 2019-03-20 11:01 | Diag Imaging Result Doc PS360 ---
EXAM: CHEST-PORTABLE HISTORY: chest pain TECHNIQUE: Single view single view COMPARISON: 05/14/2018 FINDINGS: The lungs are well expanded. The heart is not enlarged. The vessels are not distended. There are no infiltrates. No effusion identified. IMPRESSION: Negative exam. Electronically signed by Chris Guzman 03/20/2019 10:58 AM
[2019-03-20] MEDS: FLAGYL 500 MG/NS 500 MG/100 ML IVPB IV SCH ×3 (11:56→23:28)
[2019-03-20] MEDS: PROTONIX 80 MG in NS 80 ML IV SCH ×2 (11:57→23:28)
--- NOTE | 2019-03-20 12:05 | Diag Imaging Result Doc PS360 ---
EXAM: CT ABD/PELVIS W/IV CONT ONLY INDICATION: abd pain TECHNIQUE: This exam was performed using automated exposure control, adjustment of mA or kV according to patient size, and/or use of iterative reconstruction technique. COMPARISON: 03/01/2019 FINDINGS: There has been a prior cholecystectomy. The liver, spleen, pancreas, and adrenal glands are grossly unremarkable. There is mild thickening of the right adrenal gland, likely related to hyperplasia or an underlying adenoma. The kidneys are unremarkable. The urinary bladder is largely nondistended and is unremarkable, otherwise. There has been a prior hysterectomy. The appendix is normal. The mild ascending colonic wall thickening seen on the previous study is not identified on the current study. This was probably due to underdistention on the previous study no colonic or small bowel wall thickening is appreciated. There is no obstructive bowel pattern. The stomach is grossly unremarkable. No focal inflammatory changes, free abdominal gas, or free fluid is appreciated. There is no evidence of acute osseous abnormality. IMPRESSION: Incidental/nonacute findings detailed above. No evidence of acute pathology by CT. Electronically signed by Warren Pace 03/20/2019 12:02 PM
[2019-03-20] MEDS ORDERED: ZOFRAN ODT PO PRN (12:44)
[2019-03-20] MEDS: LEVAQUIN 750 MG/D5W 750 MG/150 ML IVPB IV SCH (13:08)
--- NOTE | 2019-03-20 18:56 | GASTROENTEROLOGY CONSULTATION ---
DATE: 03/20/2019 REASON FOR CONSULTATION: Abdominal pain, nausea, and melena. HISTORY OF PRESENT ILLNESS: This is a 54-year-old female who we had just seen in the hospital several weeks ago. At that time, she was treated symptomatically for gastritis and colitis that was showing on her CT scan. On the day of our consultation several weeks ago, she was in severe pain but her symptoms improved over the next several days, and she was discharged. There was a note that she had followed back with Dr. Wade several days ago and was doing well but in the next day or 2 after that visit she started having black stools and vomiting. At the time of our visit, patient was gone down for a CT scan. Her mother was in the room waiting on her to come back, and we spoke with her about review of systems. She states she has had problems off and on for many years. By our record, the last time she had an EGD and colonoscopy was in May of 2018. Esophagogastroduodenoscopy findings showed esophagitis and ulcers in the stomach and she was treated with PPI. She had colon polyps one being a large flat polyp, serrated adenoma and she was recommended to have a follow up colonoscopy in 1 year which would be this coming May. She did have findings during workup of gallstones, and she had cholecystectomy in August of [address] Herrera. She also had a liver biopsy at that time that showed chronic inflammation grade 1 of 4 and fibrosis stage 2 of 4. I believe patient has a history of hepatitis C. PAST MEDICAL HISTORY: GERD. History of drug use. She had recently been at [facility] several weeks ago for detox. She has a reported history of hepatitis C. PAST SURGICAL HISTORY: Cholecystectomy in September of 2018. Left arm surgery. Last EGD and colonoscopy in May of 2018 that showed esophagitis, gastric erosions, large ascending colon polyp, and a polyp in the rectosigmoid colon with a recommendation to have a repeat colonoscopy in 1 year which will be due May of 2019. ALLERGIES: Codeine causing itching. HOME MEDICATIONS: 1. Colace 100 mg daily. 2. Hydroxyzine 25 mg daily. 3. Prilosec 40 mg daily. 4. Carafate 1 g twice a day. REVIEW OF SYSTEMS: Per history of present illness. SOCIAL HISTORY: History of drug use and alcohol dependency. She was recently in a detoxification at [facility] several weeks ago. She left that facility against medical advice, and came straight to the emergency room at [facility] for GI complaints. PHYSICAL EXAMINATION: Vital Signs: Temperature 97.9 degrees, pulse 82, respirations 17, and blood pressure 176/98. Patient was gone down for CT scan at the time of our visit. Physical exam will be performed tomorrow. LABORATORY: Hematology: WBC 12.86, hemoglobin 15.9, hematocrit 46.5, MCV 88.6, and platelets 297,000. Chemistry: Sodium 137, potassium 3.9, chloride 100, CO2 of 22, BUN 9, creatinine 0.6, glucose 154, calcium 9.6, total bilirubin 0.62, AST 27, ALT 42, alkaline phosphatase 85, amylase 122, and lipase 49. IMAGING: CT scan of the abdomen and pelvis showed a prior cholecystectomy. Liver, spleen, pancreas, and adrenal glands grossly unremarkable. Mild thickening at the right adrenal gland. Kidneys unremarkable. Prior hysterectomy. Appendix normal. Mild ascending colon wall thickening seen on previous study was not seen on this study. No inflammatory changes. Free abdominal gas or free fluid noted. ASSESSMENT AND PLAN: 1. Abdominal pain. 2. Nausea. 3. Melena. 4. History of colitis. 5. History of GERD. 6. History of drug abuse and alcohol abuse, and recent rehab several weeks ago. 7. Continue symptomatic treatment and supportive care. This is the second admission in this month with similar symptoms. She had had an EGD and colonoscopy less than a year ago, but due to her continued complaints we will repeat her EGD and colonoscopy. She was recommended to have a follow up colonoscopy in a year due to large polyps. Further plans to be made according to findings. We will allowed clear liquid diet over the weekend, and plan to start colon preparation on Saturday for an EGD and colonoscopy on Saturday. Further plans will be made according to her symptoms over the weekend. The patient was gone for CT scan at the time of our rounds. Dr. Garg and I did speak with the patient's mother. Thank you for this consultation. Dictated by ZENON Ballard for Siva Garg MD cc: ZENON Flanagan MD Roger H. Moss Jr, MD
[2019-03-20] MEDS: SODIUM CHLORIDE 0.9% INJ PRN (19:49)
[2019-03-20] MEDS: PHENERGAN IV PRN (19:49)
[2019-03-20] MEDS ORDERED: COLACE PO SCH (21:00)
[2019-03-20] MEDS ORDERED: PROTONIX IV SCH (21:00)
[2019-03-21] MEDS: PHENERGAN IV PRN ×6 (00:30→21:17)
[2019-03-21] MEDS: SODIUM CHLORIDE 0.9% INJ PRN ×2 (00:31→04:43)
[2019-03-21] MEDS: FLAGYL 500 MG/NS 500 MG/100 ML IVPB IV SCH ×4 (04:43→22:11)
[2019-03-21 08:24] LABS: BASO# 0.01 X1000 (0.0-0.2); BASO% 0.1 % (0.0-0.8); HEMATOCRIT 44.5 % (37.0-47.0); HEMOGLOBIN 15.2 g/dL (12.0-16.0); IMM GRAN# 0.03 X1000 (0.0-0.04); IMM GRAN% 0.3 % (0.0-0.5); LYMPH# 2.42 X1000 (1.2-3.4); LYMPH% 24.2 % (20.5-51.1); MCH 30.1 PG (27-31); MCHC 34.2 g/dL (33-37); MCV 88.1 FL (81-99); MONO# 0.64 X1000 (0.11-0.59); MONO% 6.4 % (1.7-9.3); MPV 10.7 FL (7.4-10.4); PLT 254 X1000 (130-400); RBC 5.05 XMIL (4.2-5.4); RDW 12.3 % (11.5-14.5)
[2019-03-21] MEDS: PROTONIX 80 MG in NS 80 ML IV SCH (08:36)
[2019-03-21] MEDS ORDERED: PROTONIX IV SCH (08:50)
[2019-03-21 08:57] LABS: AGAP 15; BUN 7 mg/dL (8-22); CALCIUM 9.4 mg/dL (8.8-10.2); CHLORIDE 97 mmol/L (98-107); COSMO 267; CREATININE 0.6 mg/dL (0.5-0.9); ESTIMATED GFR > 60; GLUCOSE 105 mg/dL (70-104); POTASSIUM 3.6 mmol/L (3.5-5.1); SODIUM 134 mmol/L (136-145); TCO2 22 mmol/L (25-35)
[2019-03-21] MEDS: LEVAQUIN 750 MG/D5W 750 MG/150 ML IVPB IV SCH (11:32)
--- NOTE | 2019-03-21 11:51 | PROGRESS NOTE ---
DATE: 03/21/2019 SUBJECTIVE: The patient says she still feels a little nauseated. She is not hurting anywhere. OBJECTIVE: Vital signs: Blood pressure is 156/86, respirations 21, pulse 68, temperature 98 degrees. HEENT: She is normocephalic. EOMS intact. PERRLA. Throat clear. Lungs: Clear to auscultation and percussion without rhonchi, rales, or wheezes. Heart: Regular rate and rhythm without murmurs, gallops, friction rubs. Abdomen: Soft. Active bowel sounds. No organomegaly or tenderness. IMAGING: CT scan of abdomen was essentially normal. LABORATORY DATA: White count [id number] with a hemoglobin 15.2, hematocrit 44.5. She does have a little bit of a left shift. Electrolytes are essentially normal. BUN and creatinine are normal. ASSESSMENT: 1. Intractable nausea. 2. Melena. 3. Abdominal pain, though she is not tender on palpation at all. 4. History of possible ascending colitis though this diagnosis has been questioned. PLAN: EGD and colonoscopy on Saturday. Continue support. cc: Chava Wade Jr, MD
[2019-03-21] MEDS ORDERED: G.I. COCKTAIL PO ONE (15:06)
[2019-03-22] MEDS: PHENERGAN IV PRN ×5 (03:25→21:14)
[2019-03-22] MEDS: FLAGYL 500 MG/NS 500 MG/100 ML IVPB IV SCH ×4 (03:26→23:05)
[2019-03-22] MEDS: PROTONIX PO SCH (06:24)
[2019-03-22 08:44] LABS: BASO# 0.01 X1000 (0.0-0.2); BASO% 0.1 % (0.0-0.8); HEMATOCRIT 47.8 % (37.0-47.0); HEMOGLOBIN 16.6 g/dL (12.0-16.0); IMM GRAN# 0.02 X1000 (0.0-0.04); IMM GRAN% 0.2 % (0.0-0.5); LYMPH# 2.22 X1000 (1.2-3.4); LYMPH% 19.6 % (20.5-51.1); MCH 29.9 PG (27-31); MCHC 34.7 g/dL (33-37); MONO# 1.05 X1000 (0.11-0.59); MONO% 9.3 % (1.7-9.3); MPV 10.4 FL (7.4-10.4); NEUT# 8.04 X1000 (1.4-6.5); NEUT% 70.8 % (42.2-75.2); PLT 262 X1000 (130-400); RBC 5.56 XMIL (4.2-5.4); RDW 12.1 % (11.5-14.5); WBC 11.34 X1000 (4.8-10.8)
[2019-03-22 09:00] LABS: AGAP 15; BUN 10 mg/dL (8-22); CALCIUM 9.5 mg/dL (8.8-10.2); CHLORIDE 94 mmol/L (98-107); COSMO 265; CREATININE 0.6 mg/dL (0.5-0.9); ESTIMATED GFR > 60; GLUCOSE 119 mg/dL (70-104); POTASSIUM 3.4 mmol/L (3.5-5.1); SODIUM 132 mmol/L (136-145); TCO2 23 mmol/L (25-35)
--- NOTE | 2019-03-22 11:30 | PROGRESS NOTE ---
DATE: 03/22/2019 SUBJECTIVE: The patient is feeling a little bit better. She says she can finally rest a little bit. Still has some nausea. OBJECTIVE: Blood pressure is 154/90, respirations 22, pulse 81, temperature 97.6 degrees Fahrenheit. The patient says she does not feel particularly nervous or trembly. HEENT: She is normocephalic. EOMs intact. PERRLA. Throat clear. Lungs are clear to auscultation and percussion without rhonchi, rales, or wheezes. Heart: Regular rate and rhythm without murmurs, gallops, or friction rubs. Abdomen: Soft. Active bowel sounds. No organomegaly or tenderness on palpation, though she says she has got a little left upper quadrant discomfort at times. Neurological Examination: Intact grossly. Patient does look a little anxious to me. She says she is scared to eat at this time. She is scheduled for her studies tomorrow. ASSESSMENT: Intractable nausea, vomiting, abdominal discomfort. Lab work does show white count 11,340, hemoglobin 16.6, hematocrit 47.8. BUN and creatinine are normal. Potassium and sodium are a little low with a potassium of 3.4 and a sodium of 132. PLAN: EGD and colonoscopy. We will go ahead and supplement potassium. cc: Chava Wade Jr, MD
[2019-03-22] MEDS ORDERED: G.I. COCKTAIL PO ONE (11:43)
[2019-03-22] MEDS: POTASSIUM CHLORIDE 40 MEQ in NS 250 ML IV SCH (13:07)
[2019-03-22] MEDS: LEVAQUIN 750 MG/D5W 750 MG/150 ML IVPB IV SCH (13:08)
[2019-03-22] MEDS ORDERED: GOLYTELY PO ONE (14:00)
[2019-03-22] MEDS: G.I. COCKTAIL PO SCH (17:04)
[2019-03-23] MEDS: PHENERGAN IV PRN ×2 (01:54→10:16)
[2019-03-23] MEDS: POTASSIUM CHLORIDE 40 MEQ in NS 250 ML IV SCH (03:32)
[2019-03-23] MEDS: FLAGYL 500 MG/NS 500 MG/100 ML IVPB IV SCH ×4 (03:34→22:36)
[2019-03-23] MEDS: PROTONIX PO SCH (06:16)
[2019-03-23 09:16] LABS: BASO# 0.01 X1000 (0.0-0.2); BASO% 0.1 % (0.0-0.8); HEMATOCRIT 47.5 % (37.0-47.0); HEMOGLOBIN 16.2 g/dL (12.0-16.0); IMM GRAN# 0.02 X1000 (0.0-0.04); IMM GRAN% 0.2 % (0.0-0.5); LYMPH# 2.61 X1000 (1.2-3.4); LYMPH% 26.2 % (20.5-51.1); MCH 29.7 PG (27-31); MCHC 34.1 g/dL (33-37); MCV 87.2 FL (81-99); MONO# 1.18 X1000 (0.11-0.59); MONO% 11.8 % (1.7-9.3); MPV 10.8 FL (7.4-10.4); NEUT# 6.16 X1000 (1.4-6.5); NEUT% 61.7 % (42.2-75.2); PLT 249 X1000 (130-400); RBC 5.45 XMIL (4.2-5.4); RDW 12.2 % (11.5-14.5); WBC 9.98 X1000 (4.8-10.8)
--- NOTE | 2019-03-23 09:39 | PROGRESS NOTE ---
DATE: 03/23/2019 SUBJECTIVE: The patient says she is feeling better. She was standing by her bedside, and said that her nausea was a little bit better. She has complained about some of the Phenergan burning her when she gets an IV and some of the potassium. She has already had all of her potassium. Lab work is not back yet this morning which is unusual, but we will check on this later. OBJECTIVE: Vital signs: Blood pressure 134/89, respirations 18, pulse 87, and temperature 97.9 degrees Fahrenheit. HEENT: She is normocephalic. EOMs intact. PERRLA. Throat clear. Lungs: Clear to auscultation and percussion without rhonchi, rales, or wheezes. Heart: Regular rate and rhythm without murmurs, gallops, or friction rubs. Abdomen: Soft. Active bowel sounds. No organomegaly or tenderness. Neurologic: Exam intact grossly. She seems less anxious today. ASSESSMENT: 1. Intractable nausea. 2. Abdominal discomfort. 3. Hypokalemia. PLAN: Plan for endoscopy today. We will check her potassium when it comes back. cc: Chava Wade Jr, MD
[2019-03-23 10:14] LABS: AGAP 15; BUN 12 mg/dL (8-22); CALCIUM 9.1 mg/dL (8.8-10.2); CHLORIDE 97 mmol/L (98-107); COSMO 266; CREATININE 0.6 mg/dL (0.5-0.9); ESTIMATED GFR > 60; GLUCOSE 99 mg/dL (70-104); SODIUM 133 mmol/L (136-145); TCO2 21 mmol/L (25-35)
[2019-03-23] MEDS: G.I. COCKTAIL PO SCH ×3 (11:20→17:42)
[2019-03-23] MEDS ORDERED: DIPRIVAN 1% ONE ×2 (11:54→14:22)
[2019-03-23] MEDS: LEVAQUIN 750 MG/D5W 750 MG/150 ML IVPB IV SCH (12:24)
[2019-03-23] MEDS ORDERED: REGLAN ONE (13:59)
[2019-03-23] MEDS ORDERED: PEPCID ONE (13:59)
[2019-03-23] MEDS ORDERED: XYLOCAINE-MPF 2% ONE (14:44)
--- NOTE | 2019-03-23 14:45 | ENDOSCOPY OPERATIVE NOTE ---
[facility] ENDOSCOPY OPERATIVE NOTE , EGD PROCEDURE REPORT PATIENT: Serene Mobley ADMISSION DATE: 03/23/2019 MR#: [id number] : 1965 PROCEDURE DATE: 03/23/2019 SURGEON: Siva Garg MD STATUS: inpatient SUPERVISOR CURED MEATS: Shahrzad Maldonado and Nirav Dawson PREOPERATIVE DIAGNOSIS: The patient is a 54 yr old female here for an EGD due to abdominal pain, miranda sea, and vomiting. PROCEDURE PERFORMED: EGD w/ biopsy MEDICATIONS: Per Anesthesia TOPICAL ANESTHETIC: none CONSENT: The patient understands the risks and benefits of the procedure and understands that these r isks include, but are not limited to: sedation, allergic reaction, infection, perforation and/or bleeding. Alternative means of evaluation and treatment include, among others: physical exam, x-rays, and/or surgical intervention. The patient elects to proceed with this endoscopic procedure. HISORY AND PHYSICAL: 03/23/2019 DESCRIPTION OF PROCEDURE: During intra-op preparation period all mechanical and medical equipment was checked for proper function. Hand hygiene and appropriate measures for infection prevention was taken. After the risks, benefits and alternatives of the procedure were thoroughly explained, Informed consent was verified, confirmed and timeout was successfully executed by the treatment team. The patient was anesthetized with topical anesthesia and the [id number]-[id number] ([id number]) and [id number] ([id number]) endoscope was introduced through the mouth and advanced to the seco nd portion of the duodenum. Retroflexion was performed in the stomach and revealed no abnormalities. The gastroscope was then slowly withdrawn and removed. ESOPHAGUS: The mucosa of the esophagus appeared normal. STOMACH: Mild acute gastritis (inflammation) with hemorrhage was found in the gastric body and gastri c antrum. Multiple biopsies were performed using cold forceps. Sample sent for histology. The stomach otherwise appea red normal. DUODENUM: The duodenal mucosa showed no abnormalities. SPECIMENS REMOVED: No ADVERSE EVENTS: There were no complications. POSTOPERATIVE DIAGNOSIS: 1. The mucosa of the esophagus appeared normal 2. Acute gastritis (inflammation) with hemorrhage was found in the gastric body and gastric antrum; multiple biopsies were performed 3. The stomach otherwise appeared normal 4. The duodenal mucosa showed no abnormalities RECOMMENDATIONS: 1. Resume pre-procedure medications 2. Follow-up biopsy results in 2 weeks 3. Continue to colonoscopy procedure REPEAT EXAM: Siva Garg MD eSigned: Siva Garg MD 03/23/2019 2:44 PM cc: PATIENT NAME: Serene Mobley MR#: [id number]
--- NOTE | 2019-03-23 14:47 | ENDOSCOPY OPERATIVE NOTE ---
[facility] ENDOSCOPY OPERATIVE NOTE , COLONOSCOPY PROCEDURE REPORT EXAM DATE: 03/23/2019 PATIENT NAME: Serene Mobley MR #: [id number] BIRTHDATE: 1965 ENDOSCOPIST: Siva Garg MD STATUS: inpatient [employer] ARCHITECT: Shahrzad Maldonado and Nirav Dawson INDICATIONS: The patient is a 54 yr old female here for a colonoscopy due to general abdominal pain. PROCEDURE PERFORMED: Colonoscopy, diagnostic MEDICATIONS: Per Anesthesia PREP TYPE: GoLytely
[2019-03-24] MEDS: FLAGYL 500 MG/NS 500 MG/100 ML IVPB IV SCH (05:37)
[2019-03-24] MEDS: PROTONIX PO SCH ×2 (05:38→06:08)
[2019-03-24 07:36] VITALS: BP 145/88
[2019-03-24 08:31] LABS: AGAP 15; BUN 12 mg/dL (8-22); CALCIUM 9.1 mg/dL (8.8-10.2); CHLORIDE 98 mmol/L (98-107); COSMO 267; CREATININE 0.8 mg/dL (0.5-0.9); ESTIMATED GFR > 60; GLUCOSE 122 mg/dL (70-104); POTASSIUM 3.6 mmol/L (3.5-5.1); SODIUM 133 mmol/L (136-145); TCO2 20 mmol/L (25-35)
[2019-03-24] MEDS ORDERED: MIRALAX PO SCH (09:00)
--- NOTE | 2019-03-24 10:58 | DISCHARGE SUMMARY ---
ADMISSION DATE: 03/20/2019 DISCHARGE DATE: 03/24/2019 FINAL DIAGNOSES: 1. Gastritis. 2. Abdominal pain. 3. Intractable nausea, now better. The patient also had complained of melena, but we found no signs of this. She had a questionable history of ascending colitis, but that was not found on exam on this admission. Consultation was with Dr. Garg. The patient did get an EGD and a colonoscopy. Gastritis was found. Biopsies were done. He felt that she should go back on her same medications of omeprazole 40 mg daily and her Carafate, which she was taking twice a day. I think she should take 4 times a day. He recommended MiraLAX, which she can get over the counter, once a day as she did have some constipation issues. PHYSICAL EXAMINATION: Vital Signs: Blood pressure is 145/88, respirations 17, pulse 102, temp 98.1 degrees Fahrenheit. HEENT: She is normocephalic. EOMS intact. PERRLA. Throat clear. Lungs: Clear to auscultation and percussion without rhonchi, rales, or wheezes. Heart: Regular rate and rhythm without murmurs, gallops, friction rubs. Abdomen: Soft with active bowel sounds. No organomegaly or tenderness. Neurologic: Intact grossly. She has no nausea. Will discharge home with her medicines. I will see her back within the next week, and she is to bring her medications with her. Dr. Garg wants to do another colonoscopy in 1 year, and to see him back in 2 weeks at his office. cc: Chava Wade Jr, MD
== END 2019-03-24 10:02 | disposition home or self-care (01) | DRG 379 ==
LOC: SUPCPDRO → EDIPHOLD 02:29 → ED 02:29 → OBSVTOIN 09:16 → 3N 16:04
PROVIDERS: ADMIT Emergency Medicine; ATTEND Emergency Medicine